=== PATIENT | male | born 1970 | race Asian ===

== ENCOUNTER 2017-02-25 11:50 | Inpatient (IN) | payer OTHER ==
[~2017-02-25] VITALS: Ht 165.1 cm; Wt 56.7 kg
--- NOTE | 2017-02-25 12:27 | ED PSYCHIATRIC COMPLAINT ---
History of Present Illness General Chief Complaint: ETOH/Drug Related Complaint Stated Complaint: DETOX FROM ETOH Source: patient Exam Limitations: intoxication Vital Signs & Intake/Output Vital Signs & Intake/Output Vital Signs Date Time Temp Pulse Resp B/P B/P Pulse O2 O2 Flow FiO2 Mean Ox Delivery Rate 02/25 2229 96.5 111 18 131/75 97 Room Air 02/25 1911 118 18 120/80 02/25 1901 97.9 118 20 120/80 97 Room Air 02/25 1859 118 16 02/25 1707 98.9 104 20 100/60 96 Room Air 02/25 1441 98.6 104 16 102/62 98 Room Air 02/25 1225 Room Air Room Air 02/25 1205 98.0 125 22 154/74 99 Room Air Allergies Coded Allergies: ibuprofen (From MOTRIN) (Intermediate, RASH 02/25/17) Triage Note: PT TO ED FOR ETOH DETOX, 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 DENIES ANY HX OF DETOX SEIZURES OR DT'S. PT STATING "I'VE BEEN TO COOK, TYNDALL AND ALL OVER SO I FIGURED I'D COME HERE" Triage Nurses Notes Reviewed? yes Onset: Gradual Duration: day(s): Timing: recent history Severity: moderate HPI: 46-year-old male presents to emergency department for alcohol detox. Patient states that last week he was seen and evaluated at [facility] for alcohol detox and was given Ativan. Patient states he was discharged and has continued to drink alcohol for the past 3 days. Patient states he typically drinks 750 mL of vodka, last drink was last night. Patient states he is experiencing extreme anxiety and shakiness currently, he did not experience these symptoms in the past. He has no history of requiring hospital admission for alcohol detox, no history of seizures. Patient denies illicit drug use, SI/ HI, chest pain, abdominal pain. (Stephanie DOYLE,Georgina Nails) Past History Travel History Traveled to [place] past 21 day No Medical History Any Pertinent Medical History? none Neurological: NONE EENT: NONE Cardiovascular: NONE Respiratory: NONE Gastrointestinal: NONE Hepatic: NONE Renal: NONE Musculoskeletal: NONE Psychiatric: NONE Endocrine: NONE Blood Disorders: NONE Cancer(s): NONE Surgical History Surgical History: non-contributory Psychosocial History What is your primary language British Tobacco Use: Never used ETOH Use: alcoholic Illicit Drug Use: denies illicit drug use Family History Hx Contributory? No (Georgina Yates) Review of Systems Review of Systems Constitutional: Reports: no symptoms. EENTM: Reports: no symptoms. Respiratory: Reports: no symptoms. Cardiovascular: Reports: no symptoms. GI: Reports: no symptoms. Genitourinary: Reports: no symptoms. Musculoskeletal: Reports: no symptoms. Skin: Reports: no symptoms. Neurological/Psychological: Reports: see HPI. Hematologic/Endocrine: Reports: no symptoms. Immunologic/Allergic: Reports: no symptoms. All Other Systems: Reviewed and Negative (Georgina Yates) Physical Exam Physical Exam General Appearance: well developed/nourished, alert, awake, moderate distress, intoxicated Head: atraumatic, normal appearance Eyes: Bilateral: normal appearance. Ears, Nose, Throat: hearing grossly normal Neck: normal inspection, supple, full range of motion Respiratory: normal breath sounds, no respiratory distress, lungs clear Cardiovascular: tachycardia Gastrointestinal: soft, non-tender Extremities: normal range of motion Neurological/Psychiatric: awake, alert, anxious Appearance/Memory/Insight: disheveled, impaired insight Behavoir/Eye Contact/Speech: cooperative, increased rate of speech, good eye contact Thoughts/Hallucinations: normal thought pattern, no apparent hallucination Skin: intact, normal color, warm/dry SAD PERSONS Done? patient not suicidal (Georgina Yates) Progress Differential Diagnosis: drug intoxication, drug overdose, drug withdrawal, electrolyte abnormality, encephalitis, hypothyroidism, IC hem/mass/tumor Plan of Care: Orders Procedure Date/time Status Regular Diet 02/26 B Active Patient Data 02/255 Active CIWA 02/25 181 Active Patient Safety Monitor 02/25 1224 Active URINE DRUG SCREEN FOR ER ONLY 02/25 1224 Complete ETHANOL 02/25 1224 Complete COMPREHENSIVE METABOLIC PANEL 02/25 1224 Complete CBC WITHOUT DIFFERENTIAL 02/25 1224 Complete Laboratory Tests 02/25/17 1307: Urine Opiates Screen < 100.00, Methadone Screen 44, Barbiturate Screen < 60, Ur Phencyclidine Scrn < 6.00, Amphetamines Screen < 100, U Benzodiazepines Scrn > 800 H, Urine Cocaine Screen < 50, Urine Cannabis Screen < 5.00 02/25/17 1230: Anion Gap 17 H, Estimated GFR > 60, BUN/Creatinine Ratio 23.3, Glucose 126 H, Calcium 9.8, Total Bilirubin 0.5, AST 91 H, ALT 99 H, Alkaline Phosphatase 75, Total Protein 7.4, Albumin 4.1, Globulin 3.3, Albumin/Globulin Ratio 1.2, CBC w Diff NO MAN DIFF REQ, RBC 4.68 L, MCV 89.9, MCH 30.6, RDW 13.1, MPV 8.6, Gran % 39.2 L, Lymphocytes % 40.2, Monocytes % 10.5 H, Eosinophils % 9.6 H, Basophils % 0.5, Absolute Granulocytes 2.1, Absolute Lymphocytes 2.2, Absolute Monocytes 0.6, Absolute Eosinophils 0.5, Absolute Basophils 0, PUBS MCHC 34.0, Serum Alcohol 178.0 The patient was discussed with Dr. Bain. He was medicated with IM Benadryl , Haldol, Ativan. 10:20 PM - patient agitated and very anxious, shaking in stretcher. Headache and nausea. CIWA of 16. Given current symptoms and elevated CIWA score this patient requires hospital admission for continued monitoring, IV and/or PO Ativan, possible psychiatric consult. This patient is not a candidate for outpatient detox given his elevated scores. Dr. Sanchez agrees with this plan. Spoke with Dr. Acosta regarding this patient's admission. (Stephanie DOYLE,Georgina Nails) Departure Departure Disposition: HOME OR SELF CARE Condition: Stable Clinical Impression Primary Impression: Alcohol withdrawal Qualifiers: Complication of substance-induced condition: with unspecified complication Qualified Code: F10.239 - Alcohol dependence with withdrawal, unspecified Secondary Impressions: Alcohol abuse Departure Forms: Customer Survey General Discharge Information Admission Note Spoke With: Jelani Rivera MD Documentation of Exam: Documentation of any treatments & extenuating circumstances including Concerns Regarding Discharge (functional status, medication knowledge or non-compliance, living conditions, etc.) that warrant an admission rather than observation: [ Alcohol withdrawal with elevated CIWA score >15 including anxiety, tremors, headache, nausea quite during IV and PO medications, persistent monitoring and CIWA assessment, possible psych consult, this patient will likely do poorly with outpatient detox given his elevated CIWA score and current symptoms] (Stephanie DOYLE,Georgina Nails) PA/COTTAGE ATTENDANT Co-Sign Statement Statement: ED Attending supervision documentation- [x] I saw and evaluated the patient. I have also reviewed all the pertinent lab results and diagnostic results. I agree with the findings and the plan of care as documented in the PA's/COTTAGE ATTENDANT's documentation. 02/25/17, 23:15... pt with tremors, anxiety, ciwa >15... merits etoh detox with benzos per protocol. [] I have reviewed the ED Record and agree with the PA's/COTTAGE ATTENDANT's documentation. [] Additions or exceptions (if any) to the PAs/COTTAGE ATTENDANT's note and plan are summarized below: [] (Laura ESPINO,Jose Hargrove)
[2017-02-25 12:39] LABS: ABSOLUTE BASOPHIL COUNT 0 /CUMM (0.0-0.2); ABSOLUTE EOSINOPHIL COUNT 0.5 /CUMM (0.0-0.7); ABSOLUTE GRANULOCYTE CT 2.1 /CUMM (1.4-6.5); ABSOLUTE LYMPH COUNT 2.2 /CUMM (1.2-3.4); ABSOLUTE MONOCYTE COUNT 0.6 /CUMM (0.10-0.60); BASOPHIL % 0.5 % (0.0-2.0); EOSINOPHIL % 9.6 % (0-5); GRANULOCYTE % 39.2 % (42.2-75.2); HEMATOCRIT 42.1 % (42-52); MEAN CORPUSCULAR HGB 30.6 PG (27.0-31.0); MEAN CORPUSCULAR VOLUME 89.9 FL (80.0-94.0); MEAN PLATELET VOLUME 8.6 FL (7.4-10.4); PLATELET COUNT 111 /CUMM (130-400); RBC DISTRIBUTION WIDTH 13.1 % (11.5-14.5); RED BLOOD CELL CT 4.68 /CUMM (4.70-6.10); WHITE BLOOD CELL COUNT 5.4 /CUMM (4.8-10.8)
[2017-02-25 19:11] VITALS: BP 120/80
--- NOTE | 2017-02-25 23:25 | History & Physical ---
Zak ESPINO,Elissa 02/25/17 2319: General Information and HPI MD Statement: I have seen and personally examined BENJAMIN LEWIS and documented this H&P. The patient is a 46 year old M who presented with a patient stated chief complaint of [alcohol detoxification]. Source of Information: patient Exam Limitations: no limitations History of Present Illness: Patient is a 46 YO M with PMH of alcohol intake, anxiety, depression, active tobacco intake, tuberculosis came to [facility] for alcohol detox. He has been drinking for the past 17yrs on and off, went to rehab twice - last one being to [facility] [facility] (discharged ). He resumed consuming alcohol after discharging from rehab. Last week he was seen and evaluated at [facility] for alcohol detox and was given Ativan in ER. After discharging he remained significantly anxious and continued to drink alcohol for the past 3 days. Reportedly experiencing extreme anxiety and shakiness currently which were new. He usually takes 750ml of vodka on daily basis and his last drink was yesterday night. He thought he selfmedicated with alcohol which apparently doesnt seem like helping this morning and he came to ER for detox. ROS is positive for palpitations and shortness of breath. No fever, Nausea/ vomiting, diarrhea, chest pain, abdominal pain. No alcohol related seizures, illicit drug use, SI/HI. He was not taking any of his psychiatric medications for a while. He was on lexapro Socially going through divorce and in lot of stress. Stays alone at home. Smoking for the past 30ys - 5 cigars per day. No drugs. He had lug abscess due to tuberculosis in the past 24yrs ago. Remained asymptomatic after that. Allergies/Medications Allergies: Coded Allergies: ibuprofen (From MOTRIN) (Intermediate, RASH 02/25/17) Home Med list No Known Home Medications Compliance With Home Meds: POOR Past History Travel History Traveled to [place] past 21 day No Medical History Neurological: NONE EENT: NONE Cardiovascular: NONE Respiratory: NONE Gastrointestinal: NONE Hepatic: NONE Renal: NONE Musculoskeletal: NONE Psychiatric: NONE Endocrine: NONE Blood Disorders: NONE Cancer(s): NONE Isolation History: Standard Surgical History Surgical History: non-contributory Past Family/Social History Psychosocial History Where do you live? Home Who Do You Live With? self Services at Home: None Primary Language: pashto Smoking Status: Current Everyday Smoker ETOH Use: alcoholic Illicit Drug Use: denies illicit drug use Functional Ability ADLs Independent: dressing, eating, toileting, bathing. Ambulation: independent IADLs Independent: shopping, housework, finances, food prep, telephone, transportation , medication admin. Review of Systems Review of Systems Constitutional: Reports: see HPI. EENTM: Reports: see HPI. Cardiovascular: Reports: palpitations. Respiratory: Reports: short of breath. GI: Reports: see HPI. Genitourinary: Reports: see HPI. Musculoskeletal: Reports: see HPI. Skin: Reports: see HPI. Neurological/Psychological: Reports: see HPI. Exam & Diagnostic Data Last 24 Hrs of Vital Signs/I&O Vital Signs Date Time Temp Pulse Resp B/P B/P Pulse O2 O2 Flow FiO2 Mean Ox Delivery Rate 02/26 0022 97.2 112 18 108/57 98 Room Air 02/26 0021 97.2 112 18 108/57 02/25 2229 96.5 111 18 131/75 97 Room Air 02/25 1911 118 18 120/80 02/25 1901 97.9 118 20 120/80 97 Room Air 02/25 1859 118 16 02/25 1707 98.9 104 20 100/60 96 Room Air 02/25 1441 98.6 104 16 102/62 98 Room Air 02/25 1225 Room Air Room Air 02/25 1205 98.0 125 22 154/74 99 Room Air Intake & Output 02/26 0800 02/26 0000 02/25 1600 Intake Total 0 Output Total Balance 0 Intake, Oral 0 Patient 56.699 kg Weight Weight Reported by Patient Measurement Method Physical Exam General Appearance Alert, Oriented X3, Cooperative, Mild Distress Skin No Rashes, No Breakdown Skin Temp/Moisture Exam: Warm/Dry HEENT Atraumatic, PERRLA, EOMI Neck Supple Cardiovascular Normal S1, Normal S2, No Murmurs Lungs Clear to Auscultation, Normal Air Movement Abdomen Normal Bowel Sounds, Soft Neurological Normal Gait, Normal Speech Extremities No Clubbing, No Cyanosis, No Edema Last 24 Hrs of Labs/Feliciano: Laboratory Tests 02/26/17 0009: Lactic Acid Pending, Magnesium Pending 02/25/17 1307: Urine Opiates Screen < 100.00, Methadone Screen 44, Barbiturate Screen < 60, Ur Phencyclidine Scrn < 6.00, Amphetamines Screen < 100, U Benzodiazepines Scrn > 800 H, Urine Cocaine Screen < 50, Urine Cannabis Screen < 5.00 02/25/17 1230: Anion Gap 17 H, Estimated GFR > 60, BUN/Creatinine Ratio 23.3, Glucose 126 H, Calcium 9.8, Magnesium 1.4 L, Total Bilirubin 0.5, AST 91 H, ALT 99 H, Alkaline Phosphatase 75, Total Protein 7.4, Albumin 4.1, Globulin 3.3, Albumin/ Globulin Ratio 1.2, CBC w Diff NO MAN DIFF REQ, RBC 4.68 L, MCV 89.9, MCH 30.6, RDW 13.1, MPV 8.6, Gran % 39.2 L, Lymphocytes % 40.2, Monocytes % 10.5 H, Eosinophils % 9.6 H, Basophils % 0.5, Absolute Granulocytes 2.1, Absolute Lymphocytes 2.2, Absolute Monocytes 0.6, Absolute Eosinophils 0.5, Absolute Basophils 0, PUBS MCHC 34.0, Serum Alcohol 178.0 Assessment/Plan Assessment: Patient is a 46 YO M with PMH of alcohol intake, anxiety, depression, active tobacco intake, tuberculosis came to [facility] for alcohol detox. Vitals at presentation are afebrile with HR 125, BP 154/74mmHg, on room air. Physical exam is unremarakable except for anxiety on genreal appearence. Labs show AG - 17, mild transaminitis with benzo positive in UA. Plan admit to general medicine floor Alcohol detoxification Patient had a CIWA of 16 in ER. Significant alcohol intake as mentioned above. * started on CIWA protocol with scheduled and PRN ativan. * Banana bag. * Psych and social work consult. * Monitor CIWA and count requirement per day. * trend transaminitis and check hepatitis panel. Medication claim history shows - taking fenofibrate, lexapro, clonidine, propronolol, hydroxyzine. He lost followed up and has not been taking any his medications for the past few months. follow up lipid panel in am and consider restarting fenofibrate if still appropriate. Please obtain records form [facility]. As Ranked By This Provider Problem List: 1. Alcohol withdrawal Qualifiers Complication of substance-induced condition: with unspecified complication Qualified Code: F10.239 - Alcohol dependence with withdrawal, unspecified 2. Alcohol abuse Core Measures/Misc (11/13) Acute Coronary Syndrome ACS Diagnosis: No Congestive Heart Failure Congestive Heart Failure Diagnosis No Cerebrovascular Accident CVA/TIA Diagnosis: No VTE (View Protocol) VTE Risk Factors No risk factors No Mechanical VTE Prophylaxis d/t N/A MechProphylax Ordered No VTE Pharm Prophylaxis d/t NA PharmProphylax ordered Sepsis (View protocol) Sepsis Present: No Miguel ESPINO, [facility] 02/26/17 0018: Attending MD Review Statement Attending Statement Attending MD Statement: examined this patient, discuss w/resident/PA/TIN CONTAINER STRAIGHTENER, agreed w/resident/PA/TIN CONTAINER STRAIGHTENER, reviewed images, amended to note Attending Assessment/Plan: 46 yo M with h/o anxiety, depression, TB ?abscess of right lung requiring drainage and lobectomy (20+ years ago), alcohol dependence since age 15, reports drinking a bottle (750 ml) of Vodka daily, is here requesting alcohol detox. Patient reports being under stress with undergoing a divorce and not being able to meet his daughter for past 5 months. 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 He has previously been to [facility] for a detox but never been admitted inpatient or to ICU for ativan drip. No h/o DT's or withdrawal seizures. He did undergo outpatient alcohol rehab ([place]) in Oct 2016 but resumed drinking soon after. He was seen at [facility] 4 days ago, was given ativan and discharged. He continued to drink as he could not control his anxiety, palpitations and shakes/tremors. He denies lightheadedness, nausea, vomiting, abdominal pain, hematemesis, melena or diarrhea. Last drink was 1 day prior. Denies SI or HI. He is a current everyday smoker but denies illicit drug use. He is not on any prescription meds stopped taking lexpro as it did not seem to help his depression. On review of his medication claim history, it appears he was prescribed propranolol, prazosin, fenofibrate, seroquel but he is not taking any of these. Vitals stable except for tachycardia 90-110's. Exam is unremarkable except for dry mucous membranes, tremors. Labs: Plt 111, K 3.3, AG 17, glucose 126, Mag 1.4 , AST 91, ALT 99, lactic acid 1.2, trop neg. UA clear. Urine tox screen positive for benzos. Alcohol 178. Assessment and plan: 1. Alcohol withdrawal 2. Thrombocytopenia 3. Transaminitis 2/2 alcohol use 4. Hypokalemia and hypomagnesemia 5. History of anxiety and depression untreated - Admit to general medicine - [facility] protocol - IV ativan per CIWA - PO ativan 2 mg Q6 - Banana bag once then change to thiamine, folic acid, MVI. - Gentle IV hydration - Trend LFTs in AM - RUQ ultrasound in AM - Check hepatitis panel - Obtain baseline EKG - Check INR and peripheral smear - Psych and social work consult - Replete electrolytes to keep K > 4.0 amd Mag > 2.0 - PO omeprazole - Smoking cessation counseling, nicotine patch - Consider trazodone to help with insomnia DVT ppx Alps (due to low platelets). Full code.
[2017-02-26] VITALS (11 sets, daily range): BP systolic 102–116; BP diastolic 57–72
--- NOTE | 2017-02-26 00:18 | Admission Certification ---
Admission Certification Certification Statement - As attending physician, I certify that at the time of - admission, based on clinical presentation, severity of - symptoms, need for further diagnostic testing and - therapeutic interventions, and risk of adverse outcomes - without in-hospital treatment, in my clinical assessment, - this patient requires an acute hospital stay for a minimum - of two nights or longer. I have also considered psychsocial - factors such as support system, advanced age, financial - issues, cognitive issues, and failed out-patient treatments, - past re-admission history, safety of patient, and lack of - compliance as applicable. Specific rationale supporting this admission is: Alcohol withdrawal
--- NOTE | 2017-02-26 10:03 | PN- Housestaff ---
CernaHanna 02/26/17 0954: Subjective Follow-up For: Alcohol withdrawal Thrombocytopenia Transaminitis 2/2 alcohol use Hypokalemia hypomagnesemia History of anxiety and depression Subjective: Patient was sleeping with snoring when I walked in. Review of Systems Constitutional: Reports: see HPI. Objective Last 24 Hrs of Vital Signs/I&O Vital Signs Date Time Temp Pulse Resp B/P B/P Pulse O2 O2 Flow FiO2 Mean Ox Delivery Rate 02/26 0630 98.4 83 20 102/68 95 Room Air 02/26 0118 97.8 92 18 102/60 97 Room Air 02/26 0022 97.2 112 18 108/57 98 Room Air 02/26 0021 97.2 112 18 108/57 02/25 2229 96.5 111 18 131/75 97 Room Air 02/25 1911 118 18 120/80 02/25 1901 97.9 118 20 120/80 97 Room Air 02/25 1859 118 16 02/25 1707 98.9 104 20 100/60 96 Room Air 02/25 1441 98.6 104 16 102/62 98 Room Air 02/25 1225 Room Air Room Air 02/25 1205 98.0 125 22 154/74 99 Room Air Physical Exam General Appearance: No Acute Distress, Patient was sleeping Current Medications: Current Medications Sig/Bhumika Start time Last Medication Dose Route Stop Time Status Admin Al Hydroxide/Mg 30 ML Q6P PRN 02/25 2315 AC Hydroxide PO Clonidine 0.1 MG ONCE ONE 02/25 1845 DC 02/25 PO 02/25 184 1859 Cyanocobalamin/ 1 BAG ONCE ONE 02/255 DC 02/26 Thiamine/Pyridoxine IV 02/26 0714 0021 Dextrose/Water 1,000 ML Diphenhydramine HCl 0 .STK-MED ONE 02/25 1221 DC .ROUTE Diphenhydramine HCl 50 MG ONCE ONE 02/25 1215 DC 02/25 IM 02/25 1216 1229 Enoxaparin Sodium 40 MG DAILY 02/26 1000 AC 02/26 SC 1010 Folic Acid 1 MG DAILY 02/26 1000 AC 02/26 PO 1008 Haloperidol 0 .STK-MED ONE 02/25 1221 DC .ROUTE Haloperidol 5 MG ONCE ONE 02/25 1215 DC 02/25 IM 02/25 1216 1229 Hydroxyzine HCl 0 .STK-MED ONE 02/25 1851 DC PO Hydroxyzine HCl 50 MG ONCE ONE 02/25 1845 DC 02/25 PO 02/25 184 1859 Lorazepam See Dose Q1P PRN 02/25 2315 AC Insts (1) IV Lorazepam 2 MG Q6H 02/25 2315 AC 02/26 PO 1013 Lorazepam 2 MG ONE ONE 02/25 2230 DC 02/25 IV 02/25 2231 222 Lorazepam 2 MG ONCE ONE 02/25 2230 DC 02/25 PO 02/25 2231 2228 Lorazepam 0 .STK-MED ONE 02/25 2223 DC PO Lorazepam 0 .STK-MED ONE 02/25 2223 DC .ROUTE Lorazepam 0 .STK-MED ONE 02/25 1221 DC .ROUTE Lorazepam 2 MG ONCE ONE 02/25 1215 DC 02/25 IM 02/25 1216 1229 Magnesium Sulfate 1 GM Q2H 02/26 0100 DC 02/26 Dextrose/Water 100 ML IV 02/26 0459 0550 Melatonin 5 MG AT BEDTIME 02/26 0030 AC 02/26 PO 0052 Multivitamins 1 TAB DAILY 02/26 1000 AC 02/26 PO 1008 Nicotine 21 MG DAILY 02/26 1000 AC TOP Omeprazole 40 MG DAILY AC 02/26 0703 AC 02/26 PO 1009 Potassium Chloride 40 MEQ ONCE ONE 02/26 1030 AC PO 02/26 1031 Potassium Chloride 0 .STK-MED ONE 02/26 0017 DC PO Potassium Chloride 40 MEQ ONCE ONE 02/25 2330 DC 02/26 PO 02/25 2331 0021 Thiamine HCl 50 MG DAILY 02/26 1000 AC 02/26 PO 1009 Dose Instructions: (1)Lorazepam: See admin criteria Last 24 Hrs of Lab/Feliciano Results Last 24 Hrs of Labs/Mics: Laboratory Tests 02/26/17424: Lactic Acid 0.9 02/26/17424: Anion Gap 10, Estimated GFR > 60, BUN/Creatinine Ratio 21.4, Total Bilirubin 0.9 , Direct Bilirubin 0.4, AST 76 H, ALT 83 H, Alkaline Phosphatase 62, Total Protein 6.4, Albumin 3.3 L, Triglycerides 106, Cholesterol 202 H, LDL Cholesterol, Calc 117, HDL Cholesterol 64 H, Cholesterol/HDL Ratio 3, Hepatitis A IgM Ab Pending, Hep Bs Antigen Pending, Hep B Core IgM Ab Conf Pending, Hepatitis C Antibody Pending 02/26/17 0009: Lactic Acid 1.2, Magnesium 1.0 L 02/25/17 1307: Urine Opiates Screen < 100.00, Methadone Screen 44, Barbiturate Screen < 60, Ur Phencyclidine Scrn < 6.00, Amphetamines Screen < 100, U Benzodiazepines Scrn > 800 H, Urine Cocaine Screen < 50, Urine Cannabis Screen < 5.00, Urine Color YEL , Urine Clarity CLEAR, Urine pH 6.0, Ur Specific Isom 1.020, Urine Protein NEG, Urine Ketones NEG, Urine Nitrite NEG, Urine Bilirubin NEG, Urine Urobilinogen 0.2, Ur Leukocyte Esterase NEG, Ur Microscopic EXAM NOT REQUIRED, Urine Hemoglobin NEG, Urine Glucose NEG 02/25/17 1230: Anion Gap 17 H, Estimated GFR > 60, BUN/Creatinine Ratio 23.3, Glucose 126 H, Calcium 9.8, Magnesium 1.4 L, Total Bilirubin 0.5, AST 91 H, ALT 99 H, Alkaline Phosphatase 75, Troponin I < 0.01, Total Protein 7.4, Albumin 4.1, Globulin 3.3, Albumin/Globulin Ratio 1.2, CBC w Diff NO MAN DIFF REQ, RBC 4.68 L, MCV 89.9, MCH 30.6, RDW 13.1, MPV 8.6, Gran % 39.2 L, Lymphocytes % 40.2, Monocytes % 10.5 H, Eosinophils % 9.6 H, Basophils % 0.5, Absolute Granulocytes 2.1, Absolute Lymphocytes 2.2, Absolute Monocytes 0.6, Absolute Eosinophils 0.5, Absolute Basophils 0, PUBS MCHC 34.0, Serum Alcohol 178.0 Assessment/Plan Assessment: Ms. Luis is a 46 yo M with h/o anxiety, depression, abscess of right lung s/p drainage & lobectomy (20+ years ago), alcohol dependence since age 15, reported drinking a bottle (750 ml) of Vodka daily, presented for voluntary alcohol detox. Patient reported being under stress with divorce/separation from his daughter. He had hx of detox [facility] and [facility] without admission. No h/o DT's or withdrawal seizures. He did undergo outpatient alcohol rehab ( [place]) in 10/2016 but resumed drinking soon after. He was seen at [place] 4 days ago, was given ativan and discharged. He continued to drink as he could not control his anxiety, palpitations and shakes/tremors. Patient denied lightheadedness, nausea, vomiting, abdominal pain, hematemesis, melena or diarrhea. Last drink prior this admission was 1 day prior. Patient denied SI or HI. Patient had stopped taking lexpro as it did not seem to help his depression. Patient denied taking meds listed on [facility] ER course: VSS except for tachycardia 90-110's. Exam was unremarkable except for dry mucous membranes, tremors. Labs: Plt 111, K 3.3, AG 17, glucose 126, Mag 1.4, AST 91, ALT 99, lactic acid 1.2, trop neg. UA clear. Urine tox screen positive for benzos. Alcohol 178. Assessment and plan: Alcohol withdrawal Thrombocytopenia Transaminitis 2/2 alcohol use Hypokalemia hypomagnesemia History of anxiety and depression, not on Lexapro - IV ativan per CIWA + PO ativan 2 mg Q6 - Continued on thiamine, folic acid, MVI. - Gentle IV hydration - LFTs upon admission -> 76/83 on latest lab. - RUQ ultrasound in AM - Check hepatitis panel - Obtain baseline EKG - Psych and social work consult - Replete electrolytes to keep K > 4.0 amd Mag > 2.0 - PO omeprazole - Smoking cessation counseling, nicotine patch - Consider trazodone to help with insomnia DVT ppx Alps (due to low platelets). NPO Full code. Problem List: 1. Alcohol abuse 2. Alcohol withdrawal Pain Ratin Pain Location: NA Pain Goal: Remain pain free Pain Plan: NA Tomorrow's Labs & Rationales: CBC/BEP/PT/INR Charlie Mata MD 02/26/17 1017: Attending MD Review Statement Attending Statement Attending MD Statement: examined this patient, discuss w/resident/PA/VISUAL C DEVELOPER, agreed w/resident/PA/VISUAL C DEVELOPER, reviewed EMR data (avail), discussed with nursing, discussed with case mgmt, amended to note Attending Assessment/Plan: Patient seen and examined. Found to be sleeping soundly but easily arousable. Sitter present at the bedside. He is not agitated or tremulous at present but is very drowsy. Lungs are clear bilaterally. Heart sounds are regular. Abdomen is soft and nontender. He has no peripheral edema. Recommendations: -Patient was just admitted overnight so we will continue to monitoring closely on his current benzodiazepine regimen. -Further recommendations regarding this regimen will be made based on his response. -He is noted to be mildly hypotensive this morning. Recommend aggressive hydration with lactated Ringer's at 150 cc an hour. -Supplement potassium orally. Begin patient on magnesium oxide 400 mg orally twice daily. -His transaminitis pattern is not entirely consistent with alcoholic transaminitis. Obtain viral hepatitis panel and right upper quadrant sonogram.
--- NOTE | 2017-02-26 12:38 | ULTRASOUND REPORT ---
EXAMINATION: US ABDOMEN LIMITED CLINICAL INFORMATION: Alcoholic hepatitis. COMPARISON: None. TECHNIQUE: Real-time imaging of the right upper quadrant abdominal viscera. Imaging limited by bowel gas and difficulty complying with technologist's instructions. FINDINGS: PANCREAS: Limited. The visualized pancreatic head and proximal body are normal in appearance. The remainder of the pancreas is obscured from visualization by the overlying bowel gas. LIVER: Borderline enlarged, with a longitudinal span of 17.1 cm. The liver demonstrates normal contour and generally increased echogenicity. No focal lesion or intrahepatic biliary duct dilatation. GALLBLADDER: Normal. The gallbladder is physiologically distended without evidence of stones, sludge, polyps, wall thickening or pericholecystic fluid. COMMON BILE DUCT: Normal in caliber measuring 0.3 cm in diameter. RIGHT KIDNEY: Normal. No hydronephrosis. No renal calculi or focal parenchymal lesions. The kidney measures 10.1 cm in maximum dimension. FREE FLUID: None. IMPRESSION: 1. There is borderline hepatomegaly. 2. There is generalized increase in hepatic echotexture, consistent with fatty infiltration or hepatocellular disease. Please correlate clinically. Provided history of alcoholic hepatitis noted. No focal hepatic mass or intrahepatic biliary dilatation is seen. 3. Otherwise unremarkable abdominal ultrasound examination, with imaging of the pancreas limited by overlapping bowel gas.
--- NOTE | 2017-02-26 15:50 | ED PSYCHIATRIST/APRN CONSULT ---
See Addendum Psychiatrist/[facility] ED Consult Assessment and Plan: Psychiatric consult requested because of alcohol use disorder, anxiety and depression. VSs, CIWAs, medication list, labs reviewed. Patient seen at 3:36 pm. He is a 46 yo Czech-Pak[place] man with a lengthy hx of alcohol use disorder. Reports anxiety and depression but inability to find an outpatient psychiatrist and counselor. Reports drinking 3/4 bottle of vodka/ day. Feels very anxious. Reports divorce is in process. Has a 7 yo daughter. While there are no drinkers in his family, he thinks that his addiction is genetic. Mother had panic and he found that drinking in college helped his panic. Past psychiatric hx: Not in treatment. No inpatient tx hx. No suicide attempts. Substance abuse hx: Alcohol, as above. Prior rehabs at [place] in 11/13 and in [place] in 2011 or 2012. Tobacco: 4 cigs/day. Denies ever having using street drugs. Rx: Ran out of Lexapro. States he was on 40 mg/day and it made him slow. Agrees to restart Lexapro at 10 mg qhs. Past tx with Restoril for sleep. Seroquel helped with sleep but made him dizzy/sleepy in a.m. Allergies: Ibuprofen. PMH: Here for detox. Elevated transminases. Hypokalemia, hypomagnesium, hyperlipidemia, thrombocytopenia. Hx resected lung abscess for TB. Family psychiatric and substance abuse hx: Mother high anxiety/panic attacks. No substance abuse or suicides in the family. Social hx: Lives alone in [place]. Going through a divorce. 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 Holds 2 masters, 1 in mechanical engineering and 1 in computer science. One degree is from [email or web address] and one is from [employer]. Speaks Czech, Hungarian, Anguillan, some New Zealander and can read and understand Mohawk. No hx arrests. Mental status examination: Middle aged Czech-Pakistani male, resting in bed. Bearded, dressed in blue paper scrubs. Malodorous and dissheveled. Sitter is nearby. Calm, polite and cooperative. No agitation. Seems somewhat psychomotorically slowed. Speech is slow, normal in volume and tone. Affect is flat, calm. Mood is anxious at 4 -5/10. Sad mood is like a 7/10. Feels hopeless, helpless, worthless and guilty. Denies active and passive SI, HI, AH, VH, PI and magical joaquin. There is no apparent thought disorder or delusions. Insight and judgment are currently fair but have been poor with regard to drinking. Ox3. Cognition is grossly intact. Estimate of intellectual functioning is above average. Sleep: sleeps well when on Seroquel. Appetite: "I eat well." Energy: low now but works out at the gym. IMPRESSION: Alcohol withdrawal. Alcohol use disorder. Moderate depression. Anxiety disorder. Hypokalemia. Hypomagnesemia. Thrombocytopenia. Hyperlipidemia. Hx TB. Will restart Lexapro at 10 mg qhs. I will order a TSH(reflex). Continue with vitamins, detox, follow CIWAs. Patient states he cannot afford to go to an inpatient rehab. I suggested that he consider [facility]. Patient is asking how long he will need to be here. Please reconsult psychiatry as needed.
--- NOTE | 2017-02-26 16:21 | Cons- Psychiatry ---
Psychiatric Consult Date of Consult: 02/26/17 Allergies: Coded Allergies: ibuprofen (From MOTRIN) (Intermediate, RASH 02/25/17) Past History Past Medical History Neurological: NONE EENT: NONE Cardiovascular: NONE Respiratory: NONE Gastrointestinal: NONE Hepatic: NONE Renal: NONE Musculoskeletal: NONE Psychiatric: anxiety, depression Endocrine: NONE Blood Disorders: NONE Cancer(s): NONE LAW SECRETARY/Reproductive: NONE Past Surgical History Surgical History: non-contributory Assessment/Plan Impression: Psychiatric consult requested because of alcohol use disorder, anxiety and depression. VSs, CIWAs, medication list, labs reviewed. Patient seen at 3:36 pm. He is a 46 yo Gambian-Japanese man with a lengthy hx of alcohol use disorder. Reports anxiety and depression but inability to find an outpatient psychiatrist and counselor. Reports drinking 3/4 bottle of vodka/ day. Feels very anxious. Reports divorce is in process. Has a 7 yo daughter. While there are no drinkers in his family, he thinks that his addiction is genetic. Mother had panic and he found that drinking in college helped his panic. Past psychiatric hx: Not in treatment. No inpatient tx hx. No suicide attempts. Substance abuse hx: Alcohol, as above. Prior rehabs at [place] in 11/13 and in [place] in 2011 or 2012. Tobacco: 4 cigs/day. Denies ever having using street drugs. Rx: Ran out of Lexapro. States he was on 40 mg/day and it made him slow. Agrees to restart Lexapro at 10 mg qhs. Past tx with Restoril for sleep. Seroquel helped with sleep but made him dizzy/sleepy in a.m. Allergies: Ibuprofen. PMH: Here for detox. Elevated transminases. Hypokalemia, hypomagnesium, hyperlipidemia, thrombocytopenia. Hx resected lung abscess for TB. Family psychiatric and substance abuse hx: Mother high anxiety/panic attacks. No substance abuse or suicides in the family. Social hx: Lives alone in [place]. Going through a divorce. 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 Holds 2 masters, 1 in mechanical engineering and 1 in computer science. One degree is from [employer] and one is from [employer]. Speaks Greenlandic, French, Fijian, some Macanese and can read and understand German. No hx arrests. Mental status examination: Middle aged Gambian-Japanese male, resting in bed. Bearded, dressed in blue paper scrubs. Malodorous and dissheveled. Sitter is nearby. Calm, polite and cooperative. No agitation. Seems somewhat psychomotorically slowed. Speech is slow, normal in volume and tone. Affect is flat, calm. Mood is anxious at 4 -5/10. Sad mood is like a 7/10. Feels hopeless, helpless, worthless and guilty. Denies active and passive SI, HI, AH, VH, PI and magical joaquin. There is no apparent thought disorder or delusions. Insight and judgment are currently fair but have been poor with regard to drinking. Ox3. Cognition is grossly intact. Estimate of intellectual functioning is above average. Sleep: sleeps well when on Seroquel. Appetite: "I eat well." Energy: low now but works out at the gym. IMPRESSION: Alcohol withdrawal. Alcohol use disorder. Moderate depression. Anxiety disorder. Hypokalemia. Hypomagnesemia. Thrombocytopenia. Hyperlipidemia. Hx TB. Will restart Lexapro at 10 mg qhs. I will order a TSH(reflex). Continue with vitamins, detox, follow CIWAs. Patient states he cannot afford to go to an inpatient rehab. I suggested that he consider [facility]. Patient is asking how long he will need to be here. Please reconsult psychiatry as needed.
[2017-02-27] VITALS (8 sets, daily range): BP systolic 112–134; BP diastolic 64–80
[2017-02-27 09:31] LABS: ABSOLUTE BASOPHIL COUNT 0 /CUMM (0.0-0.2); ABSOLUTE EOSINOPHIL COUNT 0.4 /CUMM (0.0-0.7); ABSOLUTE LYMPH COUNT 1.7 /CUMM (1.2-3.4); ABSOLUTE MONOCYTE COUNT 0.9 /CUMM (0.10-0.60); BASOPHIL % 0.2 % (0.0-2.0); EOSINOPHIL % 6.9 % (0-5); GRANULOCYTE % 49.7 % (42.2-75.2); HEMATOCRIT 37.7 % (42-52); MEAN CORPUSCULAR HGB 30.7 PG (27.0-31.0); MEAN CORPUSCULAR HGB CONC 33.6 G/DL (33.0-37.0); MEAN CORPUSCULAR VOLUME 91.3 FL (80.0-94.0); MEAN PLATELET VOLUME 8.7 FL (7.4-10.4); PLATELET COUNT 127 /CUMM (130-400); RBC DISTRIBUTION WIDTH 13.1 % (11.5-14.5); RED BLOOD CELL CT 4.13 /CUMM (4.70-6.10); WHITE BLOOD CELL COUNT 6.1 /CUMM (4.8-10.8)
--- NOTE | 2017-02-27 09:36 | PN- Housestaff ---
Hanna Cerna 02/27/17 0929: Subjective Follow-up For: Alcohol withdrawal Thrombocytopenia Transaminitis 2/2 alcohol use Hypokalemia hypomagnesemia History of anxiety and depression Subjective: Patient felt generally well without agitation/palpitation or mood turbulence. Patient would like to go home tomorrow night since he had a conference for [employer] on monday. Overnight CIWA 2-4 Review of Systems Constitutional: Reports: see HPI. Objective Last 24 Hrs of Vital Signs/I&O Vital Signs Date Time Temp Pulse Resp B/P B/P Pulse O2 O2 Flow FiO2 Mean Ox Delivery Rate 02/27 0709 97.9 83 20 120/76 97 Room Air 02/27 0300 97.6 78 20 120/80 97 Room Air 02/26 2321 98.2 86 20 102/68 97 Room Air 02/26 2040 98.0 90 20 114/62 02/26 1900 98.2 95 20 108/72 98 Room Air 02/26 1600 98.7 92 20 116/60 02/26 1511 98.7 92 20 116/60 97 Room Air 02/26 1111 98.0 83 20 110/60 96 Room Air Intake & Output 02/27 1600 02/27 0800 02/27 0000 Intake Total 400 Output Total 300 Balance 100 Intake, Oral 400 Output, Urine 300 Physical Exam General Appearance: Alert, Oriented X3, Cooperative, No Acute Distress Cardiovascular: Regular Rate Lungs: Clear to Auscultation, Normal Air Movement Abdomen: Normal Bowel Sounds, Soft, No Tenderness Extremities: No Edema, Normal Pulses Current Medications: Current Medications Sig/Bhumika Start time Last Medication Dose Route Stop Time Status Admin Al Hydroxide/Mg 30 ML Q6P PRN 02/25 2315 AC Hydroxide PO Enoxaparin Sodium 40 MG DAILY 02/26 1000 AC 02/27 SC 0842 Escitalopram Oxalate 10 MG AT BEDTIME 02/26 2200 AC 02/26 PO 2214 Folic Acid 1 MG DAILY 02/26 1000 AC 02/27 PO 0842 Influenza Virus 0.5 ML ONCE ONE 02/26 1245 DC 02/26 Vaccine IM 02/26 1246 1357 Lactated Ringer's 1,000 ML ONCE ONE 02/26 1500 DC 02/26 IV 02/26 2139 1603 Lorazepam 1.5 MG Q6H 02/27 1115 AC PO Lorazepam See Dose Q1P PRN 02/25 2315 AC Insts (1) IV Lorazepam 2 MG Q6H 02/25 2315 DC 02/27 PO 0530 Melatonin 5 MG AT BEDTIME 02/26 0030 AC 02/26 PO 2214 Multivitamins 1 TAB DAILY 02/26 1000 AC 02/27 PO 0842 Nicotine 21 MG DAILY 02/26 1000 AC 02/27 TOP 0842 Omeprazole 40 MG DAILY AC 02/26 0703 AC 02/27 PO 0530 Potassium Chloride 10 MEQ Q1H 02/26 1600 DC 02/26 IV 02/26 1701 1742 Potassium Chloride 40 MEQ ONCE ONE 02/26 1030 DC 02/26 PO 02/26 1031 1110 Thiamine HCl 50 MG DAILY 02/26 1000 AC 02/27 PO 0842 Dose Instructions: (1)Lorazepam: See admin criteria Last 24 Hrs of Lab/Feliciano Results Last 24 Hrs of Labs/Mics: Laboratory Tests 02/27/17 0635: Sodium Pending, Potassium Pending, Chloride Pending, Carbon Dioxide Pending, Anion Gap Pending, BUN Pending, Creatinine Pending, BUN/Creatinine Ratio Pending , Total Bilirubin Pending, Direct Bilirubin Pending, AST Pending, ALT Pending, Alkaline Phosphatase Pending, Total Protein Pending, Albumin Pending, PT Pending , INR Pending, CBC w Diff Pending, WBC Pending, RBC Pending, Hgb Pending, Hct Pending, MCV Pending, MCH Pending, RDW Pending, Plt Count Pending, MPV Pending, PUBS MCHC Pending Assessment/Plan Assessment: Ms. Luis is a 46 yo M with h/o anxiety, depression, abscess of right lung s/p drainage & lobectomy (20+ years ago), alcohol dependence since age 15, reported drinking a bottle (750 ml) of Vodka daily, presented for voluntary alcohol detox. Patient reported being under stress with divorce/separation from his daughter. He had hx of detox at [facility] and [facility] without admission. No h/o DT's or withdrawal seizures. He did undergo outpatient alcohol rehab ( [place]) in 10/2016 but resumed drinking soon after. He was seen at [facility] 4 days ago, was given ativan and discharged. He continued to drink as he could not control his anxiety, palpitations and shakes/tremors. Patient denied lightheadedness, nausea, vomiting, abdominal pain, hematemesis, melena or diarrhea. Last drink prior this admission was 1 day prior. Patient denied SI or HI. Patient had stopped taking lexpro as it did not seem to help his depression. Patient denied taking meds listed on [facility] ER course: VSS except for tachycardia 90-110's. Exam was unremarkable except for dry mucous membranes, tremors. Labs: Plt 111, K 3.3, AG 17, glucose 126, Mag 1.4, AST 91, ALT 99, lactic acid 1.2, trop neg. UA clear. Urine tox screen positive for benzos. Alcohol 178. Assessment and plan: Alcohol withdrawal Thrombocytopenia Transaminitis 2/2 alcohol use Hypokalemia hypomagnesemia History of anxiety and depression, not on Lexapro - IV ativan per CIWA + PO ativan 1.5 mg Q6, tomorrow 1mg q8, and pending discharge with 0.5mg ativan bid for monday, so patient could catch up work on Monday. - Continued on thiamine, folic acid, MVI. - DC fluid, started eating. - LFTs upon admission -> 76/83 on latest lab. - RUQ ultrasound showed IMPRESSION: 1. There is borderline hepatomegaly. 2. There is generalized increase in hepatic echotexture, consistent with fatty infiltration or hepatocellular disease. Please correlate clinically. Provided history of alcoholic hepatitis noted. No focal hepatic mass or intrahepatic biliary dilatation is seen. 3. Otherwise unremarkable abdominal ultrasound examination, with imaging of the pancreas limited by overlapping bowel gas. - Hepatitis panel non-reactive - Psych and social work consult appreciated, started Lexapro 10mg at bedtime. - Replete electrolytes to keep K > 4.0 amd Mag > 2.0 - PO omeprazole - Smoking cessation counseling, nicotine patch DVT ppx Alps (due to low platelets). Regular Diet Full code. Problem List: 1. Alcohol abuse 2. Alcohol withdrawal Pain Ratin Pain Location: NA Pain Goal: Remain pain free Pain Plan: NA Tomorrow's Labs & Rationales: CBC/BEP Adolfo ESPINO,Charlie 02/27/17 1220: Attending Review Statement Attending Statement Attending MD Statement: examined this patient, discuss w/resident/PA/HVAC FIELD SERVICE TECHNICIAN, agreed w/resident/PA/HVAC FIELD SERVICE TECHNICIAN, reviewed EMR data (avail), discussed with nursing, discussed with case mgmt, amended to note Attending Assessment/Plan: Patient seen and examined. He is doing much better today. CIWA is improving. He did not require any Ativan intravenously yesterday. He is very calm. Give a clear history about why he drinks heavily. He is however eager to be discharged tomorrow in order to return to work. On examination he is not tremulous. He is not agitated. Heart sounds are regular. Lungs are clear bilaterally. Abdomen is soft and nontender. He has no peripheral edema. Consultation by the psychiatry service appreciated. TSH is within normal limits. Recommendations: -We can taper down his Ativan today. If he continues to do well overnight he may be discharged late in the afternoon tomorrow with a few doses of Ativan to continue at home. -He has been advised to follow-up with an alcohol rehabilitation program upon discharge. -He did have a drop in his hemoglobin. Admission hemoglobin was likely due to hemoconcentration. Repeat H&H tomorrow.
[2017-02-27 09:40] LABS: PT 13.3 SEC (9.4-12.5)
[2017-02-27] MEDS ORDERED: ATIVAN0.5 M1 PO (11:38)
--- NOTE | 2017-02-27 17:24 | Patient Discharge Instructions ---
Discharge Instructions General Discharge Information You were seen/treated for: Alcohol withdrawal Thrombocytopenia Transaminitis 2/2 alcohol use Hypokalemia hypomagnesemia History of anxiety and depression, not on Lexapro Special Instructions: - Please follow up with alcohol rehabilitation program upon discharge. - Please follow up with your primary care physician within 1-2 week of discharge. Inform your primary care physician of this admission to [facility]. - Continue your current medications per discharge instructions. - Please watch for these problems: Fever, Chills, Nausea, Vomiting, Shortness of Breath, Productive Cough, Chest Pain/Discomfort, Abdominal Pain, Active Bleeding or Bloody urine/stool. Diet Continue normal diet: Yes Activity Full Activity/No Limits: Yes Acute Coronary Syndrome Inclusion Criteria At DC or during hospital stay patient has or had the following: ACS DIAGNOSIS No Discharge Core Measures Meds if any: Prescribed or Continued at Discharge Meds if any: NOT Prescribed or Continued at Discharge Congestive Heart Failure Inclusion Criteria At DC or during hospital stay patient has or had the following: CHF DIAGNOSIS No Discharge Core Measures Meds if any: Prescribed or Continued at Discharge Meds if any: NOT Prescribed or Continued at Discharge Cerebrovascular accident Inclusion Criteria At DC or during hospital stay patient has or had the following: CVA/TIA Diagnosis No Discharge Core Measures Meds if any: Prescribed or Continued at Discharge Meds if any: NOT Prescribed or Continued at Discharge Venous thromboembolism Inclusion Criteria VTE Diagnosis No VTE Type NONE VTE Confirmed by (Test) NONE Discharge Core Measures - Per Current guidelines, there needs to be overlap - treatment for the first 5 days of Warfarin therapy. - If discharged on Warfarin prior to 5 days of - overlap therapy, the patient will need to be - assessed for post discharge needs including - *Post discharge parental anticoagulation - *Warfarin and/or parental anticoagulation education - *Follow up date to check INR post discharge At least 5 days overlap therapy as Inpatient No Meds if any: Prescribed or Continued at Discharge Note: Overlap Therapy is Warfarin and Anticoagulant Meds if any: NOT Prescribed or Continued at Discharge
--- NOTE | 2017-02-27 17:39 | Discharge Summary ---
Visit Information Visit Dates Admission Date: 02/25/17 Discharge Date: 02/28/2017 Hospital Course Course Attending Physician: Miguel ESPINO,Jelani Primary Care Physician: Patient Has No Primary Care Dr Hospital Course: Ms. Luis is a 46 yo M with h/o anxiety, depression, abscess of right lung s/p drainage & lobectomy (20+ years ago), alcohol dependence since age 15, reported drinking a bottle (750 ml) of Vodka daily, presented for voluntary alcohol detox. Patient reported being under stress with divorce/separation from his daughter. He had hx of detox at [facility] and [facility] without admission. No h/o DT's or withdrawal seizures. He did undergo outpatient alcohol rehab ( [place]) in 10/2016 but resumed drinking soon after. He was seen at [place] [facility] 4 days ago, was given ativan and discharged. He continued to drink as he could not control his anxiety, palpitations and shakes/tremors. Patient denied lightheadedness, nausea, vomiting, abdominal pain, hematemesis, melena or diarrhea. Last drink prior this admission was 1 day prior. Patient denied SI or HI. Patient had stopped taking lexpro as it did not seem to help his depression. Patient denied taking meds listed on [facility] ER course: VSS except for tachycardia 90-110's. Exam was unremarkable except for dry mucous membranes, tremors. Labs: Plt 111, K 3.3, AG 17, glucose 126, Mag 1.4, AST 91, ALT 99, lactic acid 1.2, trop neg. UA clear. Urine tox screen positive for benzos. Alcohol 178. Assessment and plan: #Alcohol withdrawal Upon admission, patient was kept NPO, started patient monitor for fall precaution, and given IV and PO Ativan per CIWA protocol, with multi-vitamin supplements. Patient had no history of alcohol withdrawal seizure, and no such event was observed in hospital stay. Patient underwent rapid tapering of Ativan as CIWA scored mostly below 8. Upon discharge, patient had advanced to regular diet, with CIWA of 0, and no palpitation/agitation. Patient was advised to complete the last day of Ativan 0.5mg twice daily for 03/01/2016. #Thrombocytopenia Upon admission, patient's platelet count was 111 below normal range, however likely due to dehydration and hemo concentration. Patient had no active bleeding event within hospital stay. Upon discharge, patient's Plt was ? on latest lab. #Transaminitis 2/2 alcohol use Upon admission, patient's AST/ALT was 91/99, trended down to 76/87 on lastest lab. Patient's transaminitis was likely due to alcohol use disorder and/or underlying alcoholic hepatitis shown on RUQ ultrasound, despite that patient's hepatitis A/B/C panels showed negative. #Hypokalemia & hypomagnesemia Upon admission, patient's K/Mg was 3.3/1.4. With repletion, trended up to ? on latest lab. #History of anxiety and depression, not on Lexapro Psych consult on board, recommended that to restart Lexapro 10mg at bedtime. Patient was also give smoking ceassation consult and nicotine patch. DVT ppx Alps (due to low platelets). Regular Diet Full code. Allergies: Coded Allergies: ibuprofen (From MOTRIN) (Intermediate, RASH 02/25/17) Pertinent Lab Results: SERVICE DATE: 02/26/17 EXAM TYPE: US - US-LIMITED ABDOMEN IMPRESSION: 1. There is borderline hepatomegaly. 2. There is generalized increase in hepatic echotexture, consistent with fatty infiltration or hepatocellular disease. Please correlate clinically. Provided history of alcoholic hepatitis noted. No focal hepatic mass or intrahepatic biliary dilatation is seen. 3. Otherwise unremarkable abdominal ultrasound examination, with imaging of the pancreas limited by overlapping bowel gas. Disposition Summary Disposition Principal Diagnosis: Alcohol withdrawal Thrombocytopenia Transaminitis 2/2 alcohol use Hypokalemia hypomagnesemia History of anxiety and depression, not on Lexapro Additional Diagnosis: As above Discharge Disposition: home or self care Discharge Instructions General Discharge Information Code Status: Full Code Patient's Diet: Regular Patient's Activity: As tolerated Follow-Up Instructions/Appts: - Please follow up with alcohol rehabilitation program upon discharge. - Please follow up with your primary care physician within 1-2 week of discharge. Inform your primary care physician of this admission to [facility]. - Continue your current medications per discharge instructions. - Please watch for these problems: Fever, Chills, Nausea, Vomiting, Shortness of Breath, Productive Cough, Chest Pain/Discomfort, Abdominal Pain, Active Bleeding or Bloody urine/stool. Medications at Discharge Discharge Medications: Start taking the following new medications: Lorazepam (Ativan) 0.5 MG TABLET 1 Tablet ORAL TWICE DAILY Qty = 2 No Refills Instructions: . Comments: Please take 1 tablet, twice daily on 03/01/2017 Last Taken: 02/28/17 (OTHER DOSAGE TAKEN) Time: 1:56PM LORazepam (Ativan) 1 MG TAB 1 Tablet ORAL GIVE ONCE Qty = 1 No Refills Instructions: . Comments: Please take one tablet at night of 02/28/2017 Last Taken: 02/28/17 Time: 1:56PM Copies To: Unknown
[2017-02-28] VITALS: BP 134/80
[2017-02-28 02:00] VITALS: BP 134/80
[2017-02-28 04:00] VITALS: BP 134/80
[2017-02-28 06:00] VITALS: BP 128/72
[2017-02-28 06:51] VITALS: BP 148/74
--- NOTE | 2017-02-28 08:33 | PN- Housestaff ---
Hanna Cerna 02/28/17 0828: Subjective Follow-up For: Alcohol withdrawal Thrombocytopenia Transaminitis 2/2 alcohol use Hypokalemia hypomagnesemia History of anxiety and depression Subjective: Overnight CIWA 3-5 Patient is sleeping when I entered. Per sitter, patient had not slept until 5AM this morning. No agitation. Review of Systems Constitutional: Reports: see HPI. Objective Last 24 Hrs of Vital Signs/I&O Vital Signs Date Time Temp Pulse Resp B/P B/P Pulse O2 O2 Flow FiO2 Mean Ox Delivery Rate 02/28 0651 98.5 100 18 148/74 95 Room Air 02/28 0600 98.5 88 18 128/72 / 0400 96.0 94 18 134/80 02/28 0200 98.7 100 18 134/80 02/28 0000 98.7 100 18 134/80 02/27 2200 98.7 100 18 134/80 97 Room Air 02/27 1759 98.4 102 18 112/80 96 Room Air 02/27 1355 98.2 100 20 120/64 97 Room Air 02/27 0959 98.0 100 20 122/80 97 Room Air Intake & Output 02/28 1600 02/28 0800 02/28 0000 Intake Total 410 800 Output Total 800 Balance 410 0 Intake, IV 10 Intake, Oral 400 800 Output, Urine 800 Physical Exam General Appearance: Patient was sleeping when I walked in. Current Medications: Current Medications Sig/Bhumika Start time Last Medication Dose Route Stop Time Status Admin Al Hydroxide/Mg 30 ML Q6P PRN 02/25 2315 AC Hydroxide PO Alprazolam 0.25 MG ONCE ONE 02/28 0230 DC 02/28 PO 02/28 0231 0233 Enoxaparin Sodium 40 MG DAILY 02/26 1000 AC 02/27 SC 0842 Escitalopram Oxalate 10 MG AT BEDTIME 02/26 2200 AC 02/27 PO 2116 Folic Acid 1 MG DAILY 02/26 1000 AC 02/27 PO 0842 Lorazepam 1 MG Q8 02/28 0600 AC 02/28 PO 0618 Lorazepam 1 MG Q8 02/28 0000 CAN IV 02/28 2355 Lorazepam 1.5 MG Q6H 02/27 1115 DC 02/27 PO 02/27 2355 2246 Lorazepam See Dose Q1P PRN 02/25 2315 AC 02/27 Insts (1) IV 1757 Lorazepam 2 MG Q6H 02/25 2315 DC 02/27 PO 0530 Melatonin 5 MG AT BEDTIME 02/26 0030 AC 02/27 PO 2116 Multivitamins 1 TAB DAILY 02/26 1000 AC 02/27 PO 0842 Nicotine 21 MG DAILY 02/26 1000 AC 02/27 TOP 0842 Omeprazole 40 MG DAILY AC 02/26 0703 AC 02/28 PO 0618 Quetiapine Fumarate 25 MG ONCE ONE 02/28 0115 DC 02/28 PO 02/28 0116 0118 Quetiapine Fumarate 25 MG ONCE ONE 02/28 0045 DC 02/28 PO 02/28 0046 0058 Thiamine HCl 50 MG DAILY 02/26 1000 AC 02/27 PO 0842 Dose Instructions: (1)Lorazepam: See admin criteria Last 24 Hrs of Lab/[place] Results Last 24 Hrs of Labs/Mics: Laboratory Tests 02/28/17 0812: Sodium Pending, Potassium Pending, Chloride Pending, Carbon Dioxide Pending, Anion Gap Pending, BUN Pending, Creatinine Pending, BUN/Creatinine Ratio Pending , Magnesium Pending, Total Bilirubin Pending, Direct Bilirubin Pending, AST Pending, ALT Pending, Alkaline Phosphatase Pending, Total Protein Pending, Albumin Pending, CBC w Diff Pending, WBC Pending, RBC Pending, Hgb Pending, Hct Pending, MCV Pending, MCH Pending, RDW Pending, Plt Count Pending, MPV Pending, PUBS MCHC Pending Assessment/Plan Assessment: Ms. Luis is a 46 yo M with h/o anxiety, depression, abscess of right lung s/p drainage & lobectomy (20+ years ago), alcohol dependence since age 15, reported drinking a bottle (750 ml) of Vodka daily, presented for voluntary alcohol detox. Patient reported being under stress with divorce/separation from his daughter. He had hx of detox at [facility] and [facility] without admission. No h/o DT's or withdrawal seizures. He did undergo outpatient alcohol rehab ( [place]) in 10/2016 but resumed drinking soon after. He was seen at [place] [facility] 4 days ago, was given ativan and discharged. He continued to drink as he could not control his anxiety, palpitations and shakes/tremors. Patient denied lightheadedness, nausea, vomiting, abdominal pain, hematemesis, melena or diarrhea. Last drink prior this admission was 1 day prior. Patient denied SI or HI. Patient had stopped taking lexpro as it did not seem to help his depression. Patient denied taking meds listed on [facility] ER course: VSS except for tachycardia 90-110's. Exam was unremarkable except for dry mucous membranes, tremors. Labs: Plt 111, K 3.3, AG 17, glucose 126, Mag 1.4, AST 91, ALT 99, lactic acid 1.2, trop neg. UA clear. Urine tox screen positive for benzos. Alcohol 178. Assessment and plan: Alcohol withdrawal Thrombocytopenia Transaminitis 2/2 alcohol use Hypokalemia hypomagnesemia History of anxiety and depression, not on Lexapro - IV ativan per CIWA + PO ativan tapered to 1 mg Q8 and pending discharge after afternoon dose. Patient could be discharged with 0.5mg ativan bid for monday, so patient could catch up work on Monday. - Continued on thiamine, folic acid, MVI. - DC fluid, started eating. - LFTs upon admission 91/ -> 76/83 on latest lab. - RUQ ultrasound showed IMPRESSION: 1. There is borderline hepatomegaly. 2. There is generalized increase in hepatic echotexture, consistent with fatty infiltration or hepatocellular disease. Please correlate clinically. Provided history of alcoholic hepatitis noted. No focal hepatic mass or intrahepatic biliary dilatation is seen. 3. Otherwise unremarkable abdominal ultrasound examination, with imaging of the pancreas limited by overlapping bowel gas. - Hepatitis panel non-reactive - Psych and social work consult appreciated, started Lexapro 10mg at bedtime. - Replete electrolytes to keep K > 4.0 amd Mag > 2.0 - PO omeprazole - Smoking cessation counseling, nicotine patch DVT ppx Alps (due to low platelets). Regular Diet Full code. Problem List: 1. Alcohol abuse 2. Alcohol withdrawal Pain Ratin Pain Location: NA Pain Goal: Remain pain free Pain Plan: NA Tomorrow's Labs & Rationales: Alden Vicente 02/28/17 1154: Attending Review Statement Attending Statement Attending MD Statement: examined this patient, discuss w/resident/PA/KITMAN, agreed w/resident/PA/KITMAN, discussed with family, reviewed EMR data (avail), discussed with nursing, discussed with case mgmt, reviewed images, amended to note Attending Assessment/Plan: Patient seen/examined bedside. Patient denies any new complaints. Patient says "1000 people are chasing me". Patient is with alcohol use disorder and withdrawal. He is on ativan taper 1mg po q8. Patient is getting lexapro 10 mg hs. [facility] already consulted and recommed lexapro and treatment of alcohol withdrawal. He is on thiamine and folic acid. His vitals stable. cont current care.. anticipate dc soon.
[2017-02-28] MEDS ORDERED: ATIVAN1 M1 PO ×2 (08:34→14:25)
[2017-02-28 09:21] LABS: ABSOLUTE BASOPHIL COUNT 0 /CUMM (0.0-0.2); ABSOLUTE EOSINOPHIL COUNT 0.5 /CUMM (0.0-0.7); ABSOLUTE GRANULOCYTE CT 2.9 /CUMM (1.4-6.5); ABSOLUTE LYMPH COUNT 2.1 /CUMM (1.2-3.4); BASOPHIL % 0.2 % (0.0-2.0); EOSINOPHIL % 8.3 % (0-5); GRANULOCYTE % 44.5 % (42.2-75.2); HEMATOCRIT 37.3 % (42-52); MEAN CORPUSCULAR HGB 31.3 PG (27.0-31.0); MEAN CORPUSCULAR HGB CONC 34.3 G/DL (33.0-37.0); MEAN CORPUSCULAR VOLUME 91.2 FL (80.0-94.0); MEAN PLATELET VOLUME 8.3 FL (7.4-10.4); PLATELET COUNT 155 /CUMM (130-400); RBC DISTRIBUTION WIDTH 12.8 % (11.5-14.5); RED BLOOD CELL CT 4.09 /CUMM (4.70-6.10); WHITE BLOOD CELL COUNT 6.5 /CUMM (4.8-10.8)
[2017-02-28 13:54] VITALS: BP 132/64
[2017-02-28] MEDS ORDERED: ATIVAN0.5 M1 PO (14:25)
== END 2017-02-28 14:36 | DRG 897 ==
LOC: ERH 11:50 → ERHI 23:19 → 2NA 23:19 → ENRESERV 23:42 → 2NA 02-26 01:10 → ENPENDDIS 02-28 14:13 → 2NA 02-28 14:36
PROVIDERS: Internal Medicine; Physician Assistant
DX: F10.239 Alcohol dependence with withdrawal, unspecified (principal); D69.6 Thrombocytopenia, unspecified; E87.6 Hypokalemia; E83.42 Hypomagnesemia; F41.9 Anxiety disorder, unspecified; F32.9 Major depressive disorder, single episode, unspecified; E78.5 Hyperlipidemia, unspecified; F17.200 Nicotine dependence, unspecified, uncomplicated; Z86.11 Personal history of tuberculosis
CPT/HCPCS: 2NAP; 36415; 80307; 81003; 82436; 93005; 93010; 96372; 96374; G0480; J1200; J1630; J1650; J3490; J7060; J7120